=== PATIENT | male | born 1960 | race African-American/Black ===

== ENCOUNTER 2017-09-16 09:07 | Day surgery (SDC) | payer MEDICAID ==
[2017-09-15 10:10] LABS: HEMATOCRIT 43.6 % (37.9-51.0); HEMOGLOBIN 14.7 g/dL (13.5-17.0); HGB HCT DIFFERENCE 0.5; MEAN CORPUSCULAR HEMOGLOBIN 29.5 pg (27.0-33.4); MEAN CORPUSCULAR HGB CONC 33.6 g/dL (32.0-36.0); MEAN CORPUSCULAR VOLUME 88 fl (80-97); RED BLOOD COUNT 4.96 10^6/uL (4.35-5.55); RED CELL DISTRIBUTION WIDTH 15.7 % (11.5-14.0); WHITE BLOOD COUNT 8.6 10^3/uL (4.0-10.5)
--- NOTE | 2017-09-15 10:19 | RADIOLOGY REPORT (SQ) ---
EXAM DESCRIPTION: CHEST PA/LATERAL COMPLETED DATE/TIME: 09/15/2017 9:33 am REASON FOR STUDY: PRE OP COMPARISON: None. TECHNIQUE: Frontal and lateral radiographic views of the chest acquired. NUMBER OF VIEWS: Two view. LIMITATIONS: None. FINDINGS: LUNGS AND PLEURA: No opacities, masses or pneumothorax. No pleural effusion. MEDIASTINUM AND HILAR STRUCTURES: No masses or contour abnormalities. HEART AND VASCULAR STRUCTURES: Heart normal size. No evidence for failure. BONES: No acute findings. HARDWARE: None in the chest. OTHER: No other significant finding. IMPRESSION: NO SIGNIFICANT RADIOGRAPHIC FINDING IN THE CHEST. TECHNICAL DOCUMENTATION: JOB ID: [id number] [employer]- All Rights Reserved
[2017-09-15 10:35] LABS: ANION GAP 14 (5-19); BLOOD UREA NITROGEN 21 mg/dL (7-20); CALCIUM 10.1 mg/dL (8.4-10.2); CARBON DIOXIDE 26 mmol/L (22-30); CHLORIDE 105 mmol/L (98-107); CREATININE RESULT 1.75 mg/dL (0.52-1.25); GLUCOSE 93 mg/dL (75-110); POTASSIUM 3.8 mmol/L (3.6-5.0); SODIUM 145.1 mmol/L (137-145)
--- NOTE | 2017-09-15 13:37 | EKG REPORT ---
SEVERITY:- ABNORMAL ECG - SINUS RHYTHM LEFT VENTRICULAR HYPERTROPHY : Confirmed by: Mehran Aggarwal MD 15-Sep-2017 13:36:40
[~2017-09-16 09:07] MED LIST: BUPIVACAINE HCL 0.5%/EPI 1:200000 INJ 1.8 ML CARTRIDGE ONE; LIDOCAINE 2%/EPINEPHRINE INJ 1.7 ML CARTRIDGE ONE
[2017-09-16] MEDS ORDERED: BUPIVACAINE HCL 0.5%/EPI 1:200000 INJ 1.8 ML CARTRIDGE ONE (09:45)
[2017-09-16] MEDS ORDERED: FENTANYL CITRATE INJ/PF 100 MCG/2 ML AMPUL ONE (09:53)
[2017-09-16] MEDS ORDERED: ONDANSETRON HCL INJ/PF 4 MG/2 ML SDV ONE (09:53)
[2017-09-16] MEDS ORDERED: MIDAZOLAM 2 MG/2 ML INJ ONE (09:53)
[2017-09-16] MEDS ORDERED: PROPOFOL INJ 200 MG/20 ML VIAL IV ONE (09:53)
[2017-09-16] MEDS ORDERED: EPHEDRINE SULFATE INJ 50 MG/1 ML AMPULE ONE (09:53)
[2017-09-16] MEDS ORDERED: DEXAMETHASONE SOD PHOSPHATE INJ 4 MG/1 ML VIAL ONE (09:53)
[2017-09-16] MEDS ORDERED: LIDOCAINE 2%/EPINEPHRINE INJ 1.7 ML CARTRIDGE ONE (10:03)
[2017-09-16] MEDS ORDERED: PROMETHAZINE HCL INJ 25 MG/1 ML VIAL IV PRN (10:38)
[2017-09-16] MEDS ORDERED: DIPHENHYDRAMINE HCL 50 MG/ML VIAL IV PRN (10:38)
[2017-09-16] MEDS ORDERED: FENTANYL CITRATE INJ/PF 100 MCG/2 ML AMPUL IV PRN ×3 (10:38)
[2017-09-16] MEDS ORDERED: MEPERIDINE HCL/PF INJ 25 MG/1 ML DISP.SYRIN IV PRN (10:38)
--- NOTE | 2017-09-16 11:33 | Operative Report ---
Operative Report DATE OF SURGERY: 09/16/17 PREOPERATIVE DIAGNOSIS: Dental caries POSTOPERATIVE DIAGNOSIS: Same OPERATION: Surgical removal of teeth numbers 1, 2, 3, 5, 7, 9, 10, 11, 12, 13, 15, 17, 18, 19, 20, 21, 22, 23, 24, 25, 26, 27, 28 and 30 with alveoloplasties of all 4 quadrants SURGEON: RG ESPINOZA ANESTHESIA: GA TISSUE REMOVED OR ALTERED: Teeth which were discarded COMPLICATIONS: None ESTIMATED BLOOD LOSS: 25 mL INTRAOPERATIVE FINDINGS: Nonrestorable teeth PROCEDURE: The patient was brought into operating room #4 and placed on the operating room table in supine position. General anesthesia was induced via a peripheral IV and continued utilizing endotracheal intubation. The patient was then prepped and draped in the usual fashion for an intraoral procedure. A total of 6 carpules of 2% Lidocaine with 1:100K Epi and 2 carpules of 0.5% Marcaine with 1: 200K Epi were delivered to the planned surgical sites via both infiltration and nerve block. The oral cavity and oropharynx were suctioned and a moistened oropharyngeal throat pack was placed. A bite block was used throughout the procedure. Full thickness mucoperisteal flaps were elevated. Ostectomy was completed as needed. Teeth were sectioned as needed. Teeth were delivered with elevators and forceps. Alveoloplasties were completed using rongeurs and bone files. All sites debrided and irrigated. No sinus exposure noted. Mandible intact post op. ELENA not visualized. Wounds reapproximated and sutured with 4-0 chromic gut. The oral cavity was suctioned and found to be free of debris. The throat pack was removed. The oropharynx was suctioned. Gauze packs were placed bilaterally to aid in continued hemastasis. The patient was awakened from general anesthesia, extubated in the operating room and taken to recovery in spontaneous breathing fashion.
[2017-09-16] MEDS ORDERED: OXYCODONE-ACETAMINOPHEN 5-325 MG TABLET PO PRN ×2 (11:45→12:15)
[2017-09-16] MEDS ORDERED: IBUPROFEN 800 MG TABLET PO PRN (12:15)
[2017-09-16] MEDS ORDERED: PROMETHAZINE HCL 25 MG TABLET PO PRN (12:15)
[2017-09-16 13:05] VITALS: BP 129/75
[2017-09-16] MEDS ORDERED: SUCCINYLCHOLINE CHLORIDE INJ 200 MG/10 ML VIAL ONE (14:16)
== END 2017-09-16 13:05 | disposition home or self-care (01) ==
LOC: OROUT 09:07
PROVIDERS: ATTEND Dentist Oral and Maxillofacial Surgery
PROC: 0CDWXZ1 Extraction of Upper Tooth, Multiple, External Approach (ICD-10-PCS; 2017-09-16)
PROC: 0NQV0ZZ Repair Left Mandible, Open Approach (ICD-10-PCS; 2017-09-16)
PROC: 0NQT0ZZ Repair Right Mandible, Open Approach (ICD-10-PCS; 2017-09-16)
PROC: 0NQR0ZZ Repair Maxilla, Open Approach (ICD-10-PCS; 2017-09-16)
PROC: 0CDXXZ1 Extraction of Lower Tooth, Multiple, External Approach (ICD-10-PCS; principal; 2017-09-16 11:00)
DX: K02.9 Dental caries, unspecified (principal); I10 Essential (primary) hypertension; K21.9 Gastro-esophageal reflux disease without esophagitis; I25.2 Old myocardial infarction; Z86.73 Personal history of transient ischemic attack (TIA), and cerebral infarction without residual deficits; Z79.899 Other long term (current) drug therapy
CPT/HCPCS: 41899; 41874 ×4; 93005; 36415; 85027; 80048; 71020; 93010; J2250; J3490 ×2; J1100; J3010; J0330; J2405; J2704; 170

== ENCOUNTER 2018-07-09 16:43 | Emergency (ER) | payer MEDICAID ==
--- NOTE | 2018-07-09 17:38 | ER Document Report ---
ED Medical Screen (RME) - General Chief Complaint: Low Blood Pressure Stated Complaint: BLOOD PRESSURE ISSUE Time Seen by Provider: 07/09/18 17:36 Mode of Arrival: Medic Information source: Patient, Emergency Med Personnel Notes: This is a 57-year-old man with a history of hypertension, CVA (right hemiparesis ) who is brought in by EMS after a near syncopal at home. Patient was sitting on the couch and then slumped over and there was a question about unresponsiveness. He was reported to have a low blood pressure in the field ( systolic of 80s). Patient denies any pain. 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 He has right sided weakness which he states is chronic. TRAVEL OUTSIDE OF THE [place] 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 Denies: Hx Seizures Renal/ Medical History: Denies: Hx Peritoneal Dialysis Musculoskeltal Medical History: Denies Hx Arthritis - Immunizations Hx Diphtheria, Pertussis, Tetanus Vaccination: Yes History of Influenza Vaccine for 07/2017 - 12/2017 Season: No Physical Exam - Vital signs Vitals: Temp Pulse Resp BP Pulse Ox 97.4 F 90 16 98/62 L 99 07/09/18 16:48 07/09/18 16:48 07/09/18 16:48 07/09/18 16:48 07/09/18 16:48 Course - Vital Signs Vital signs: Temp Pulse Resp BP Pulse Ox 97.4 F 90 16 98/62 L 99 07/09/18 16:48 07/09/18 16:48 07/09/18 16:48 07/09/18 16:48 07/09/18 16:48 Doctor's Discharge - Discharge Referrals: ELISSA HAYDEN MD [Primary Care Provider] - Follow up as needed
[2018-07-09] MEDS ORDERED: NORMAL SALINE 1000 ML 1,000 ML IV ONE (19:06)
[2018-07-09 19:20] LABS: ABSOLUTE EOSINOPHILS # (AUTO) 0.1 10^3/uL (0.0-0.6); ABSOLUTE LYMPHOCYTES (AUTO) 1.7 10^3/uL (0.5-4.7); ABSOLUTE MONOCYTES (AUTO) 0.7 10^3/uL (0.1-1.4); ABSOLUTE NEUT (AUTO) 7.3 10^3/uL (1.7-8.2); BASOPHILS % (AUTO) 0.4 % (0-2); EOSINOPHILS % (AUTO) 0.6 % (0-6); HEMOGLOBIN 13.2 g/dL (13.5-17.0); LYMPHOCYTES % (AUTO) 17.2 % (13-45); MEAN CORPUSCULAR HEMOGLOBIN 29.4 pg (27.0-33.4); MEAN CORPUSCULAR HGB CONC 33.8 g/dL (32.0-36.0); MEAN CORPUSCULAR VOLUME 87 fl (80-97); MONOCYTES % (AUTO) 6.9 % (3-13); RED BLOOD COUNT 4.48 10^6/uL (4.35-5.55); RED CELL DISTRIBUTION WIDTH 15.1 % (11.5-14.0); SEGMENTED NEUTROPHILS % (AUTO) 74.9 % (42-78); TOTAL CELLS COUNTED % (AUTO) 100 %; WHITE BLOOD COUNT 9.7 10^3/uL (4.0-10.5)
--- NOTE | 2018-07-09 19:27 | ER Document Report ---
ED General - General Chief Complaint: Low Blood Pressure Stated Complaint: BLOOD PRESSURE ISSUE Time Seen by Provider: 07/09/18 17:36 Mode of Arrival: Medic Notes: Patient is a 57 year old with a prior history of a CVA and hypertension who presents after a syncopal episode. The patient states that he was outside for several hours, became lightheaded and then apparently passed out. He states that he has not eaten or drank much fluid today. He denies alcohol consumption. He states that he has had a syncopal episode in the past but is unsure of the context. He denies any drug use today. He denies any chest pain , shortness of breath, headache, neck pain, focal weakness or numbness. He denies any complaints at this time other than feeling somewhat lightheaded. He has not contacted his primary doctor regarding today's concerns. TRAVEL OUTSIDE OF THE [place] IN LAST 30 DAYS: No - Related Data Allergies/Adverse Reactions: No Known Allergies Allergy (Verified 07/09/18 16:46) Past Medical History - General Information source: Patient, Emergency Med Personnel - Social History Smoking Status: Current Every Day Smoker Frequency of alcohol use: None Drug Abuse: Marijuana Family History: Reviewed & Not Pertinent Patient has suicidal ideation: No Patient has homicidal ideation: No - Past Medical History Cardiac Medical History: Reports: Hx Heart Attack - MIx1, Hx Hypertension Denies: Hx Coronary Artery Disease Pulmonary Medical History: Denies: Hx Asthma, Hx Bronchitis, Hx COPD, Hx Pneumonia Neurological Medical History: Reports: Hx Cerebrovascular Accident - 2013 r side weakness. Denies: Hx Seizures Renal/ Medical History: Denies: Hx Peritoneal Dialysis Musculoskeletal Medical History: Denies Hx Arthritis - Immunizations Hx Diphtheria, Pertussis, Tetanus Vaccination: Yes Review of Systems - Review of Systems Notes: Constitutional: Negative for fever. HENT: Negative for sore throat. Eyes: Negative for visual changes. Cardiovascular: Negative for chest pain. Positive for syncope and lightheadedness Respiratory: Negative for shortness of breath. Gastrointestinal: Negative for abdominal pain, vomiting or diarrhea. Genitourinary: Negative for dysuria. Musculoskeletal: Negative for back pain. Skin: Negative for rash. Neurological: Negative for headaches, weakness or numbness. 10 point ROS negative except as marked above and in HPI. Physical Exam - Vital signs Vitals: Temp Pulse Resp BP Pulse Ox 97.4 F 90 16 98/62 L 99 07/09/18 16:48 07/09/18 16:48 07/09/18 16:48 07/09/18 16:48 07/09/18 16:48 Interpretation: Hypotensive Notes: PHYSICAL EXAMINATION: GENERAL: Well-appearing, well-nourished and in no acute distress. HEAD: Atraumatic, normocephalic. EYES: Pupils equal round and reactive to light, extraocular movements intact, sclera anicteric, conjunctiva are normal. ENT: nares patent, oropharynx clear without exudates. Moderately dry mucous membranes. NECK: Normal range of motion, supple without lymphadenopathy LUNGS: Breath sounds clear to auscultation bilaterally and equal. No wheezes rales or rhonchi. HEART: Regular rate and rhythm without murmurs ABDOMEN: Soft, nontender, normoactive bowel sounds. No guarding, no rebound. No masses appreciated. EXTREMITIES: Normal range of motion, no pitting or edema. No cyanosis. NEUROLOGICAL: No focal neurological deficits. Moves all extremities spontaneously and on command. PSYCH: Normal mood, normal affect. SKIN: Warm, Dry, normal turgor, no rashes or lesions noted. Course - Re-evaluation Re-evalutation: 07/09/18 19:43 Presentation of syncope of unclear etiology. Patient normotensive, alert, without focal neurologic deficits at time of arrival. Denies syncope was during exertion. No preceding symptoms of palpitations, chest pain, or shortness of breath. Patient asymptomatic at time of arrival. EKG is without evidence of HCOM , right heart strain, ST changes to suggest ischemia, prolong QTc, delta wave, epsilon wave, or Brugada syndrome. Patient denies any family history of sudden cardiac , personal history of of structural heart disease. Patient denies any symptoms to suggest an acute PE, MO, TAD, SAH, seizure, or acute GI bleed as the etiology of their syncope today. On exam, no murmurs to suggest critical aortic stenosis as possible etiology. Initial laboratories do show findings of acute on chronic kidney disease. Patient's last creatinine was 1.75 and 2017. His BUN/creatinine ratio does suggest a prerenal picture which would be consistent with a pattern of dehydration. Will recheck after the patient has received 2 L of fluid to determine if he is appropriate for discharge. 07/09/18 19:45 07/09/18 23:00 Patient's kidney function has improved closer to his baseline. His blood pressures remain normal. He states he feels very well. Would like to be discharged home. As ambulate without any recurrent syncope or lightheadedness. I have instructed him to follow-up closely with his primary care physician regarding today's presentation. I have told him that he will need to have his chemistry values rechecked. At this time will discharge with return precautions and follow-up recommendations. Verbal discharge instructions given a the bedside and opportunity for questions given. Medication warnings reviewed. Patient is in agreement with this plan and has verbalized understanding of return precautions and the need for primary care follow-up in the next 24-72 hours. - Vital Signs Vital signs: Temp Pulse Resp BP Pulse Ox 97.4 F 90 16 98/62 L 99 07/09/18 16:48 07/09/18 16:48 07/09/18 16:48 07/09/18 16:48 07/09/18 16:48 - Laboratory Result Diagrams: 07/09/18 19:07 07/09/18 22:04 Laboratory results interpreted by me: 07/09/18 07/09/18 07/09/18 19:07 19:07 22:04 Hgb 13.2 L RDW 15.1 H Plt Count 110 L Chloride 110 H BUN 37 H 33 H Creatinine 2.37 H 2.08 H Est GFR ( Amer) 34 L 40 L Est GFR (Non-Af Amer) 28 L 33 L Glucose 116 H 122 H Direct Bilirubin 0.7 H Creatine Kinase 175 H - EKG Interpretation by Me Additional EKG results interpreted by me: 07/09/18 19:43 Sinus rhythm. Rate 80. No ST elevations or depressions. QTC is 430 Discharge - Discharge Clinical Impression: Dehydration Syncope Qualifiers: Syncope type: unspecified Qualified Code(s): R55 - Syncope and collapse Condition: Good Disposition: HOME, SELF-CARE Additional Instructions: You were seen today after an episode of passing out. Your EKG here is normal. At this time, we do not feel that your episode of passing out was from any life- threatening cause. Please drink plenty of fluids over the next several days. Return to emergency department if you have any further episodes of syncope, headache, weakness, numbness, chest pain, or shortness of breath. Please follow up closely with your primary care physician. Referrals: ELISSA HAYDEN MD [NO LOCAL MD] - Follow up as needed
[2018-07-09 19:40] LABS: ALANINE AMINOTRANSFERASE 30 U/L (21-72); ALBUMIN 3.6 g/dL (3.5-5.0); ALKALINE PHOSPHATASE 57 U/L (38-126); ANION GAP 10 (5-19); ASPARTATE AMINO TRANSFERASE 31 U/L (17-59); BILIRUBIN,DIRECT 0.7 mg/dL (0.0-0.4); BILIRUBIN,TOTAL 0.9 mg/dL (0.2-1.3); BLOOD UREA NITROGEN 37 mg/dL (7-20); CALCIUM 9.8 mg/dL (8.4-10.2); CARBON DIOXIDE 23 mmol/L (22-30); CHLORIDE 107 mmol/L (98-107); CREATINE KINASE 175 U/L (55-170); GLUCOSE 116 mg/dL (75-110); POTASSIUM 3.7 mmol/L (3.6-5.0); SODIUM 139.7 mmol/L (137-145); TOTAL PROTEIN 7.2 g/dL (6.3-8.2)
[2018-07-09 19:41] LABS: ALCOHOL < 10 mg/dL (NONE DETECTED)
[2018-07-09 19:44] LABS: PLATELET COUNT 110 10^3/uL (150-450)
[2018-07-09] MEDS ORDERED: RINGERS SOLUTION,LACTATED 1,000 ML IV ONE (19:45)
[2018-07-09 20:02] LABS: CREATINE KINASE MB 0.26 ng/mL (<4.55)
[2018-07-09 20:05] LABS: TROPONIN I < 0.012 ng/mL
[2018-07-09 22:48] LABS: ANION GAP 8 (5-19); BLOOD UREA NITROGEN 33 mg/dL (7-20); CALCIUM 9.3 mg/dL (8.4-10.2); CARBON DIOXIDE 23 mmol/L (22-30); CHLORIDE 110 mmol/L (98-107); GLUCOSE 122 mg/dL (75-110); POTASSIUM 3.6 mmol/L (3.6-5.0); SODIUM 140.8 mmol/L (137-145)
[2018-07-09 23:40] VITALS: BP 114/76
--- NOTE | 2018-07-10 12:40 | EKG REPORT ---
SEVERITY:- NORMAL ECG - SINUS RHYTHM : Confirmed by: Johanny Turcios MD 10-Jul-2018 12:39:22
== END 2018-07-09 23:53 | disposition home or self-care (01) ==
LOC: ER 16:43
DX: E86.0 Dehydration (principal); R55 Syncope and collapse; I95.9 Hypotension, unspecified; F17.200 Nicotine dependence, unspecified, uncomplicated; I69.951 Hemiplegia and hemiparesis following unspecified cerebrovascular disease affecting right dominant side; I10 Essential (primary) hypertension; I25.2 Old myocardial infarction
CPT/HCPCS: 36415; 80048; 80053; 80307; 82550; 82553; 84484; 85025; 93005; 93010; 96360; 99285